=== PATIENT | male | born 1990 | race African-American/Black ===

== ENCOUNTER 2021-05-10 06:32 | Emergency (ER) | payer OTHER ==
[2021-05-10 07:06] VITALS: BP 126/83; PULSE 89; TEMP 99.2; BMI 42.3
[2021-05-10 10:24] LABS: URINE APPEARANCE TURBID; URINE BILIRUBIN MODERATE (NEGATIVE); URINE COLOR AMBER; URINE GLUCOSE (UA) NEGATIVE (NEGATIVE); URINE KETONE TRACE (NEGATIVE)
[2021-05-10 10:26] LABS: URINE LEUK ESTERASE 3+ (NEGATIVE); URINE NITRITE NEGATIVE (NEGATIVE); URINE PROTEIN 3+ (NEGATIVE); URINE UROBILINOGEN 0.2 mg/dL (0.2-1.0)
[2021-05-10] MEDS ORDERED: CEPHALEXIN MONOHYDRATE 500 MG CAPSULE (UD) PO ONE (10:43)
[2021-05-10] MEDS ORDERED: LACTATED RINGERS SOLUTION 1000 ML INFUS.BAG IV ONE (10:55)
[2021-05-10] MEDS ORDERED: CEPHALEXIN MONOHYDRATE 500 MG CAPSULE (UD) ONE (10:59)
[2021-05-10 11:51] LABS: BASO % 0.2 % (0-2.0); EOS % 0.2 % (0-4.5); HEMATOCRIT 39.7 % (35.4-49); HEMOGLOBIN 13.4 GM/dL (11.7-16.9); LYMPH % 17.8 % (8-40); MCH 29.6 pg (25.7-33.7); MCHC 33.7 g/dl (32.0-35.9); MEAN CELL VOLUME 87.8 fl (80-96); MEAN PLT VOLUME 9.4 fl (7.5-11.1); MONO % 7.4 % (3.8-10.2); NEUT % 74.4 % (42.8-82.8); PLATELET COUNT 243 10^3/uL (134-434); RBC 4.53 M/mm3 (4.00-5.60); WHITE BLOOD COUNT 14.1 K/mm3 (4.0-10.0)
[2021-05-10 12:02] LABS: CALCIUM 8.9 mg/dL (8.5-10.1)
[2021-05-10 12:03] LABS: ALBUMIN 3.7 g/dl (3.4-5.0); BLOOD UREA NITROGEN 7.2 mg/dL (7-18)
[2021-05-10 12:06] LABS: CREATININE 0.7 mg/dL (0.55-1.3)
[2021-05-10 12:07] LABS: TOT PROT 8.2 g/dl (6.4-8.2)
[2021-05-10 12:28] LABS: URINE BACTERIA 3+ /uL (0-1359); URINE WBC >100 /uL (0-25.8)
== END 2021-05-10 12:54 | disposition home or self-care (01) ==
LOC: JER 06:32
DX: N30.00 Acute cystitis without hematuria (principal)
CPT/HCPCS: 36415; 80053; 81003; 85025; 87086; 87186; 99283-25